=== PATIENT | male | born 1965 | race Two or more races ===

== ENCOUNTER 2019-06-22 14:02 | Inpatient (IN) | payer OTHER ==
[~2019-06-22] VITALS: Ht 170.2 cm; Wt 83.6 kg
[~2019-06-22 14:02] MED LIST: INSLANTI SC; INSREG3 SUBCUT; METF-370 PO
[2019-06-22] MEDS ORDERED: SODIUM CHLORIDE 0.9% 1,000 ML IVB ONE (14:23)
[2019-06-22] MEDS ORDERED: ONDANSETRON HCL 4 MG/2 ML VIAL IV ONE (14:30)
[2019-06-22] MEDS ORDERED: MORPHINE SULFATE 4 MG/ML SYR/VIAL IV ONE (14:30)
[2019-06-22 14:58] LABS: Basophils # (auto) 0 uL; Basophils % (auto) 0.3 % (0.0-2.0); Eosinophils # (auto) 0 uL; Hematocrit 36.9 % (41.0-53.0); Hemoglobin 12.4 g/dL (13.5-17.5); Lymphocytes # (auto) 0.7 uL; Lymphocytes % (auto) 8.8 % (10.0-50.0); Mean Corpuscular Hemoglobin 25.4 pg (28.0-32.0); Mean Corpuscular Hgb Conc. 33.5 g/dL (32.0-36.0); Mean Corpuscular Volume 75.8 fL (80.0-100.0); Monocytes # (auto) 0.3 uL; Monocytes % (auto) 3.8 % (0.0-12.0); Neutrophils % (auto) 87.1 % (37.0-80.0); Platelet Count (auto) 227 10^3/uL (140-450); Red Blood Cells 4.87 10^6/uL (4.5-5.90); Red Cell Distribution Width 13.9 % (11.8-14.3); White Blood Cell 8.1 10^3/uL (4.4-10.8)
[2019-06-22 15:18] LABS: Albumin 2.6 g/dL (3.4-5.0); BUN/Creatinine Ratio 25.8; Calcium 6.5 mg/dL (8.5-10.1); Magnesium 1.7 mg/dL (1.6-2.6)
[2019-06-22 15:22] LABS: Bilirubin, Total 0.3 mg/dL (0.2-1.0); Total Protein 5.9 g/dL (6.4-8.2)
[2019-06-22 15:50] LABS: Potassium 2.6 mmol/L (3.5-5.1)
[2019-06-22] MEDS ORDERED: cloNIDine HCL 0.1 MG TAB PO ONE (16:15)
[2019-06-22] MEDS: POTASSIUM CHL 20MEQ/100ML 100 ML IV SCH ×2 (16:40→18:40)
[2019-06-22 16:57] LABS: Urine WBC None Seen /hpf (0 - 3)
[2019-06-22 17:12] LABS: Urine Bacteria NONE SEEN /hpf (None Seen); Urine Blood 1+ /uL (Negative); Urine Specific Gravity 1.021 (1.001-1.035)
[2019-06-22] MEDS ORDERED: ONDANSETRON HCL 4 MG/2 ML VIAL IV PRN (17:30)
[2019-06-22] MEDS ORDERED: DEXTROSE (50%) 50ML SYRG IV PRN (17:45)
[2019-06-22] MEDS: ACCU-CHEK COMFORT CURVE STRIP VI SCH ×2 (18:18→23:49)
[2019-06-22] MEDS: InsuLIN REG 1unit/0.01ml Soln (100units/ml) SC SCH ×2 (18:20→23:56)
[2019-06-22 19:50] VITALS: BP 131/67
[2019-06-22] MEDS: SOD CHL 0.45% 1,000 ML IV SCH (20:29)
[2019-06-22 21:35] VITALS: BP 131/67
[2019-06-22] MEDS: PIPERACILLIN-TAZOB 3.375GM 100 ML IV SCH (22:13)
[2019-06-22] MEDS: MORPHINE SULFATE 4 MG/ML SYR/VIAL IV PRN (22:20)
[2019-06-23] MEDS: SOD CHL 0.45% 1,000 ML IV SCH ×4 (00:40→20:40)
[2019-06-23 05:02] VITALS: BP 123/68
[2019-06-23] MEDS: ACCU-CHEK COMFORT CURVE STRIP VI SCH ×3 (05:59→18:00)
[2019-06-23] MEDS: PIPERACILLIN-TAZOB 3.375GM 100 ML IV SCH ×2 (05:59→15:21)
[2019-06-23] MEDS: InsuLIN REG 1unit/0.01ml Soln (100units/ml) SC SCH ×3 (06:00→18:00)
[2019-06-23] MEDS: MORPHINE SULFATE 4 MG/ML SYR/VIAL IV PRN ×3 (06:08→19:52)
[2019-06-23 06:22] LABS: Basophils # (auto) 0.1 uL; Basophils % (auto) 0.9 % (0.0-2.0); Eosinophils # (auto) 0.1 uL; Eosinophils % (auto) 1.7 % (0.0-7.0); Hematocrit 34.3 % (41.0-53.0); Lymphocytes # (auto) 2.7 uL; Mean Corpuscular Hemoglobin 26.2 pg (28.0-32.0); Mean Corpuscular Volume 74.8 fL (80.0-100.0); Monocytes # (auto) 0.7 uL; Monocytes % (auto) 9.5 % (0.0-12.0); Neutrophils # (auto) 4.2 uL; Neutrophils % (auto) 53.9 % (37.0-80.0); Nucleated Red Blood Cells % 0.1 %; Platelet Count (auto) 249 10^3/uL (140-450); Red Blood Cells 4.58 10^6/uL (4.5-5.90); Red Cell Distribution Width 13.6 % (11.8-14.3); White Blood Cell 7.9 10^3/uL (4.4-10.8)
[2019-06-23 06:39] LABS: Albumin 2.6 g/dL (3.4-5.0); Calcium 7.9 mg/dL (8.5-10.1); Potassium 3.1 mmol/L (3.5-5.1)
[2019-06-23 06:45] LABS: BUN/Creatinine Ratio 19.5; Bilirubin, Total 0.5 mg/dL (0.2-1.0); Total Protein 6.4 g/dL (6.4-8.2)
--- NOTE | 2019-06-23 07:21 | NUR ---
Report received from merrick rn pt stable asleep
[2019-06-23 08:30] VITALS: BP 144/72
[2019-06-23 13:00] VITALS: BP 148/81
[2019-06-23] MEDS: POTASSIUM CHL 20 Meq TABLET PO SCH ×2 (15:31→15:32)
[2019-06-23 16:42] VITALS: BP 148/81
[2019-06-23] MEDS ORDERED: PIPERACILLIN-TAZOB 3.375GM 100 ML IV SCH (20:00)
[2019-06-23 22:00] VITALS: BP 132/70
--- NOTE | 2019-06-23 22:33 | NUR ---
PATIENT DISCHARGED PATIENT IS ALERT AND ORIENTED X4, NO COMPLAINTS OF PAIN. IV'S REMOVED WITH STERILE TECHNIQUE, PATIENT TOLERATED WELL. DISCHARGE PAPERS SIGNED AND DISCHARGE INSTRUCTIONS GIVEN, PATIENT IS TO FOLLOW UP WITH LONGTERM MD.
== END 2019-06-23 22:40 | DRG 392 ==
LOC: ER 14:02 → EEVIPCON 14:02 → EDBD 14:02 → OVERFLOW 14:03 → EAST 19:52
PROVIDERS: ADMIT Internal Medicine; ATTEND Internal Medicine
DX: R11.2 Nausea with vomiting, unspecified (principal); E87.6 Hypokalemia; I10 Essential (primary) hypertension; E11.9 Type 2 diabetes mellitus without complications; F17.210 Nicotine dependence, cigarettes, uncomplicated; K21.9 Gastro-esophageal reflux disease without esophagitis; K80.20 Calculus of gallbladder without cholecystitis without obstruction; Z90.49 Acquired absence of other specified parts of digestive tract; Z82.49 Family history of ischemic heart disease and other diseases of the circulatory system; Z83.3 Family history of diabetes mellitus; Z79.84 Long term (current) use of oral hypoglycemic drugs
CPT/HCPCS: 36415; 74176; 80053; 81001; 82150; 82962; 83690; 83735; 85025; 93005; 94761; 96374; 96375; G0378; J1815; J2405; J2543; J3480

== ENCOUNTER 2021-02-27 22:52 | Inpatient (IN) | payer OTHER ==
[~2021-02-27] VITALS: Ht 175.3 cm; Wt 94.9 kg
[2021-02-27 23:45] LABS: Basophils # (auto) 0.1 10 ^3/uL (0-0.2); Eosinophils # (auto) 0 10 ^3/uL (0-0.8)
[2021-02-27 23:46] LABS: Basophils % (auto) 0.4 % (0.0-2.0); Hematocrit 41.8 % (41.0-53.0); Hemoglobin 14.2 g/dL (13.5-17.5); Lymphocytes # (auto) 2.1 10 ^3/uL (0.4-5.4); Lymphocytes % (auto) 11.6 % (10.0-50.0); Mean Corpuscular Hemoglobin 26.3 pg (28.0-32.0); Mean Corpuscular Hgb Conc. 33.9 g/dL (32.0-36.0); Mean Corpuscular Volume 77.6 fL (80.0-100.0); Monocytes # (auto) 1.5 10 ^3/uL (0-1.3); Monocytes % (auto) 8.8 % (0.0-12.0); Neutrophils % (auto) 79.2 % (37.0-80.0); Nucleated Red Blood Cells % 0.1 %; Platelet Count (auto) 347 10^3/uL (140-450); Red Blood Cells 5.39 10^6/uL (4.5-5.90); Red Cell Distribution Width 15.3 % (11.8-14.3); White Blood Cell 17.7 10^3/uL (4.4-10.8)
[2021-02-28 00:05] LABS: Albumin 4.3 g/dL (3.4-5.0); BUN/Creatinine Ratio 17.1; Calcium 8.9 mg/dL (8.5-10.1); Potassium 3.4 mmol/L (3.5-5.1)
[2021-02-28 00:08] LABS: Bilirubin, Total 0.9 mg/dL (0.2-1.0); Total Protein 8.4 g/dL (6.4-8.2)
[2021-02-28] MEDS ORDERED: LACTATED RINGER'S 1,000 ML IV ONE ×2 (00:15→01:30)
[2021-02-28] MEDS ORDERED: ACETAMINOPHEN 500 MG TAB PO ONE (00:15)
[2021-02-28 00:57] LABS: Lactic Acid w/Reflex 3.2 mmol/L (0.4-2.0)
[2021-02-28] MEDS ORDERED: PIPERACILLIN-TAZOB 2.25GM 50 ML IV ONE (01:30)
[2021-02-28] MEDS ORDERED: VANCOMYCIN 1GM/250ML 250 ML IV ONE (01:30)
[2021-02-28 03:00] LABS: Urine Bacteria FEW /hpf (None Seen); Urine Blood Negative /uL (Negative); Urine Mucus FEW (None Seen); Urine Specific Gravity 1.011 (1.001-1.035); Urine WBC 1 /hpf (0 - 3)
[2021-02-28] MEDS ORDERED: NITROGLYCERIN 0.4 MG SL TAB SL PRN (03:45)
[2021-02-28] MEDS ORDERED: MORPHINE SULF INJ 2 MG/ML SYRINGE 1ML IV PRN (03:45)
[2021-02-28] MEDS ORDERED: DEXTROSE (50%) 50ML SYRG IV PRN (03:45)
[2021-02-28] MEDS: SOD CHL 0.45% 1,000 ML IV SCH ×3 (04:10→23:45)
[2021-02-28] MEDS: PIPERACILLIN-TAZOB 3.375GM 100 ML IV SCH ×3 (05:48→22:47)
[2021-02-28] MEDS: InsuLIN REG 1unit/0.01ml Soln (100units/ml) SC SCH ×4 (06:37→22:00)
[2021-02-28] MEDS: ACCU-CHEK COMFORT CURVE STRIP VI SCH ×4 (06:37→22:00)
[2021-02-28 09:00] VITALS: BP 136/83
[2021-02-28] MEDS ORDERED: ENOXAPARIN SOD 40 MG/0.4 ML SYRINGE SC SCH (10:00)
[2021-02-28] MEDS: MORPHINE SULFATE 4 MG/ML SYR/VIAL IV PRN ×4 (10:59→23:24)
[2021-02-28] MEDS: ONDANSETRON HCL 4 MG/2 ML VIAL IV PRN (10:59)
[2021-02-28 13:40] LABS: INR 1.05 (0.9-1.15); Partial Thromboplastin Time 25.5 sec (23.0-31.2)
[2021-02-28 16:49] VITALS: BP 195/102
[2021-02-28] MEDS: LACTULOSE 20Gm/30ML SOLN PO SCH (18:01)
[2021-02-28 22:00] VITALS: BP 155/93
[2021-02-28] MEDS: INSULIN LANTUS (GLARGINE) 1 /0.01ml (100units/ml) SC SCH (22:00)
[2021-02-28] MEDS ORDERED: PANTOPRAZOLE 40 MG TAB PO SCH (22:00)
[2021-02-28] MEDS: PANTOPRAZOLE 40 MG/10 ML VIAL INJ IV SCH (22:46)
[2021-03-01 05:00] VITALS: BP 143/92
[2021-03-01] MEDS: InsuLIN REG 1unit/0.01ml Soln (100units/ml) SC SCH ×3 (06:16→17:29)
[2021-03-01 06:25] LABS: Basophils # (auto) 0.1 10 ^3/uL (0-0.2); Basophils % (auto) 0.6 % (0.0-2.0); Eosinophils # (auto) 0.1 10 ^3/uL (0-0.8); Eosinophils % (auto) 0.6 % (0.0-7.0); Hematocrit 39.1 % (41.0-53.0); Hemoglobin 13.1 g/dL (13.5-17.5); Lymphocytes # (auto) 3.1 10 ^3/uL (0.4-5.4); Lymphocytes % (auto) 30.5 % (10.0-50.0); Mean Corpuscular Hgb Conc. 33.4 g/dL (32.0-36.0); Mean Corpuscular Volume 77.8 fL (80.0-100.0); Monocytes % (auto) 9.4 % (0.0-12.0); Neutrophils # (auto) 6.1 10 ^3/uL (1.6-8.6); Neutrophils % (auto) 58.9 % (37.0-80.0); Nucleated Red Blood Cells % 0.1 %; Platelet Count (auto) 278 10^3/uL (140-450); Red Blood Cells 5.03 10^6/uL (4.5-5.90); White Blood Cell 10.3 10^3/uL (4.4-10.8)
[2021-03-01] MEDS: SOD CHL 0.45% 1,000 ML IV SCH ×4 (06:25→19:45)
[2021-03-01 06:39] LABS: Albumin 3.5 g/dL (3.4-5.0)
[2021-03-01 06:42] LABS: BUN/Creatinine Ratio 19.6
[2021-03-01] MEDS: PIPERACILLIN-TAZOB 3.375GM 100 ML IV SCH ×2 (06:42→13:11)
[2021-03-01] MEDS: ACCU-CHEK COMFORT CURVE STRIP VI SCH ×3 (06:42→17:27)
[2021-03-01 06:45] LABS: Bilirubin, Total 0.8 mg/dL (0.2-1.0); Total Protein 7.2 g/dL (6.4-8.2)
[2021-03-01] MEDS ORDERED: POTASSIUM CHL 20 Meq TABLET PO ONE ×2 (08:00→09:00)
[2021-03-01 09:00] VITALS: BP 140/85
[2021-03-01] MEDS: MORPHINE SULFATE 4 MG/ML SYR/VIAL IV PRN ×4 (09:03→20:25)
[2021-03-01] MEDS: PANTOPRAZOLE 40 MG/10 ML VIAL INJ IV SCH (09:03)
[2021-03-01] MEDS ORDERED: GASTROGRAFIN 120 ML SOL ONE (09:41)
[2021-03-01] MEDS ORDERED: EZ-GAS II GRANULES (RADIOLOGY USE) PO ONE (09:44)
[2021-03-01 10:47] LABS: Alcohol, Urine < 3.0 mg/dL (0-10); Amphetamine Screen, Urine NEGATIVE (NEGATIVE); Barbiturate Scree,Urine NEGATIVE (NEGATIVE); Benzodiazephine Screen, Urine NEGATIVE (NEGATIVE); Cannabinoid Screen, Urine NEGATIVE (NEGATIVE); Cocaine Screen, Urine NEGATIVE (NEGATIVE); Opiate Scree,Urine POSITIVE (NEGATIVE); Phencyclidine Screen, Urine NEGATIVE (NEGATIVE)
[2021-03-01] MEDS: ONDANSETRON HCL 4 MG/2 ML VIAL IV PRN ×3 (12:55→20:25)
[2021-03-01 13:00] VITALS: BP 180/108
[2021-03-01] MEDS: LACTULOSE 20Gm/30ML SOLN PO SCH (13:13)
[2021-03-01 17:00] VITALS: BP 182/97
[2021-03-01] MEDS ORDERED: PROMETHAZINE HCL 25 MG/ML 1ML IV PRN (20:45)
[2021-03-01] MEDS ORDERED: ALUM & MAG HYDROX-SIMETH LIQ(MAALOX) 30 ML PO PRN (21:00)
[2021-03-01 22:00] VITALS: BP 139/76
[2021-03-01] MEDS ORDERED: LOSARTAN POTASSIUM 50 MG TAB PO ONE (23:00)
[2021-03-02] MEDS: ACCU-CHEK COMFORT CURVE STRIP VI SCH ×5 (00:04→22:49)
[2021-03-02] MEDS: PANTOPRAZOLE 40 MG/10 ML VIAL INJ IV SCH ×3 (00:04→22:48)
[2021-03-02] MEDS: HYDROcodone-ACET 10/325MG TAB PO PRN ×4 (00:04→23:00)
[2021-03-02] MEDS: PIPERACILLIN-TAZOB 3.375GM 100 ML IV SCH ×4 (00:05→22:48)
[2021-03-02] MEDS: SOD CHL 0.45% 1,000 ML IV SCH ×3 (00:06→14:15)
[2021-03-02] MEDS: INSULIN LANTUS (GLARGINE) 1 /0.01ml (100units/ml) SC SCH ×2 (00:25→22:56)
[2021-03-02] MEDS: InsuLIN REG 1unit/0.01ml Soln (100units/ml) SC SCH ×5 (00:26→22:57)
[2021-03-02] MEDS ORDERED: LABETALOL HCL 5 MG/ML 4ML SYRINGE IV PRN (02:00)
[2021-03-02 05:00] VITALS: BP 117/77
[2021-03-02 09:00] VITALS: BP 135/75
[2021-03-02 09:45] LABS: Potassium 3.1 mmol/L (3.5-5.1)
[2021-03-02 09:53] LABS: BUN/Creatinine Ratio 20.6; Calcium 8.2 mg/dL (8.5-10.1)
[2021-03-02] MEDS ORDERED: LISINOPRIL 10 MG TAB PO SCH (10:00)
[2021-03-02] MEDS: amLODIPine BESYLATE 5 MG TAB PO SCH (10:25)
[2021-03-02] MEDS: LOSARTAN POTASSIUM 50 MG TAB PO SCH (10:26)
[2021-03-02] MEDS ORDERED: CHOLESTYRAMINE 4 GM POWDER GT SCH (11:00)
[2021-03-02] MEDS: CHOLESTYRAMINE 4 GM POWDER PO SCH ×2 (12:04→23:00)
[2021-03-02 13:00] VITALS: BP 151/92
[2021-03-02 17:18] VITALS: BP 159/87
[2021-03-02 22:00] VITALS: BP 149/78
[2021-03-03] MEDS: SOD CHL 0.45% 1,000 ML IV SCH ×3 (03:37→11:39)
[2021-03-03 05:00] VITALS: BP 156/86
[2021-03-03] MEDS: InsuLIN REG 1unit/0.01ml Soln (100units/ml) SC SCH ×4 (06:06→21:28)
[2021-03-03] MEDS: ACCU-CHEK COMFORT CURVE STRIP VI SCH ×4 (06:06→21:29)
[2021-03-03] MEDS: PIPERACILLIN-TAZOB 3.375GM 100 ML IV SCH ×3 (06:06→21:23)
[2021-03-03 06:58] LABS: BUN/Creatinine Ratio 18.8; Calcium 7.8 mg/dL (8.5-10.1)
[2021-03-03] MEDS: amLODIPine BESYLATE 5 MG TAB PO SCH (08:10)
[2021-03-03] MEDS: LOSARTAN POTASSIUM 50 MG TAB PO SCH (08:10)
[2021-03-03] MEDS: HYDROcodone-ACET 10/325MG TAB PO PRN ×4 (08:10→21:31)
[2021-03-03] MEDS: PANTOPRAZOLE 40 MG/10 ML VIAL INJ IV SCH ×2 (08:11→21:23)
[2021-03-03 08:30] VITALS: BP 148/82
[2021-03-03] MEDS: CHOLESTYRAMINE 4 GM POWDER PO SCH ×2 (11:00→23:00)
[2021-03-03 13:00] VITALS: BP 153/76
[2021-03-03 16:30] VITALS: BP 135/82
[2021-03-03] MEDS: INSULIN LANTUS (GLARGINE) 1 /0.01ml (100units/ml) SC SCH (21:28)
[2021-03-03 22:00] VITALS: BP 170/95
[2021-03-03 23:06] VITALS: BP 136/80
[2021-03-04 05:00] VITALS: BP 161/93
[2021-03-04] MEDS: ACCU-CHEK COMFORT CURVE STRIP VI SCH ×3 (06:03→17:46)
[2021-03-04] MEDS: PIPERACILLIN-TAZOB 3.375GM 100 ML IV SCH ×2 (06:03→14:34)
[2021-03-04] MEDS: InsuLIN REG 1unit/0.01ml Soln (100units/ml) SC SCH ×3 (06:08→17:54)
[2021-03-04] MEDS: HYDROcodone-ACET 10/325MG TAB PO PRN ×2 (06:09→12:43)
[2021-03-04 06:48] VITALS: BP 148/79
[2021-03-04] MEDS: amLODIPine BESYLATE 5 MG TAB PO SCH (08:06)
[2021-03-04] MEDS: LOSARTAN POTASSIUM 50 MG TAB PO SCH (08:07)
[2021-03-04] MEDS: PANTOPRAZOLE 40 MG/10 ML VIAL INJ IV SCH (08:07)
[2021-03-04 09:00] VITALS: BP 161/79
[2021-03-04] MEDS: CHOLESTYRAMINE 4 GM POWDER PO SCH (10:59)
[2021-03-04 13:00] VITALS: BP 138/81
[2021-03-04] MEDS ORDERED: AML5T PO (15:10)
[2021-03-04] MEDS ORDERED: LOSA-69 PO (15:10)
[2021-03-04] MEDS ORDERED: POTASSIUM CHL 20 Meq TABLET PO ONE (15:15)
[2021-03-04 15:49] VITALS: BP 138/81
[2021-03-04 17:00] VITALS: BP 100/65
== END 2021-03-04 19:29 | DRG 391 ==
LOC: ER 22:52 → EEVIPCON 02-28 03:41 → OVERFLOW 02-28 03:41 → TELE-EAST 02-28 08:47 → EAST 02-28 08:50 → TELE-EAST 02-28 08:53
PROVIDERS: ADMIT Internal Medicine; ATTEND Internal Medicine
DX: K52.9 Noninfective gastroenteritis and colitis, unspecified (principal); N17.0 Acute kidney failure with tubular necrosis; J98.11 Atelectasis; K80.10 Calculus of gallbladder with chronic cholecystitis without obstruction; K29.70 Gastritis, unspecified, without bleeding; E11.9 Type 2 diabetes mellitus without complications; Z20.822 Contact with and (suspected) exposure to COVID-19; E87.6 Hypokalemia; F17.210 Nicotine dependence, cigarettes, uncomplicated; I10 Essential (primary) hypertension; I25.10 Atherosclerotic heart disease of native coronary artery without angina pectoris; I27.21 Secondary pulmonary arterial hypertension; K44.9 Diaphragmatic hernia without obstruction or gangrene; K57.30 Diverticulosis of large intestine without perforation or abscess without bleeding; K74.60 Unspecified cirrhosis of liver; N20.0 Calculus of kidney; K21.9 Gastro-esophageal reflux disease without esophagitis; Z88.8 Allergy status to other drugs, medicaments and biological substances; Z79.899 Other long term (current) drug therapy; Z79.4 Long term (current) use of insulin; Z82.49 Family history of ischemic heart disease and other diseases of the circulatory system; Z83.3 Family history of diabetes mellitus; Z90.49 Acquired absence of other specified parts of digestive tract; Z79.891 Long term (current) use of opiate analgesic; Z79.01 Long term (current) use of anticoagulants
CPT/HCPCS: 36415; 71250; 74176; 74245; 80048; 80053; 80307; 81001; 82962; 83605; 83690; 85025; 85610; 85730; 87040; 87045; 87086; 87426; 87427; 87493; 93005; 96361; 96365; 96367; 96372; 96375; 99291; C9113; G0378; J1815; J2405; J2543; J3490